=== PATIENT | female | born 1950 | race Caucasian/White ===

== ENCOUNTER → 2017-03-01 | Outpatient (CLI) | payer MEDICARE, MEDICAID ==
[~2017-03-01] MED LIST: ACETAMIN W/CODE1 TAB PO; ANUSOL HC 25MG25 MG PR; ARTHRITIS PAIN650 M1 PO; ASPIRIN 81MG TA81 MG PO; ATORVASTATIN CA40 MG PO; CARAFATE 1GM TAB1 GM PO; CIPRO 500MG TA500 MG PO; CONSTULOSE10 GM/15 M PO; DRAMAMINE50 M1 PO; EFFEXOR XR 75MG75 MG PO; FUROSEMIDE 40MG40 M1 PO; GABAPENTIN100 MG PO; GABAPENTIN300 M1 PO; GABAPENTIN300 MG PO; GRALISE600 M1 PO; HYDROCODONE-APA1 TA1 PO; HYDROXYZINE 25M25 MG PO; IMDUR ER30 MG PO; ISOSORBIDE MONO30 MG PO; LASIX40 MG PO; LIPITOR40 MG PO; LISINOPRIL 20MG20 MG PO; LISINOPRIL20 MG PO; METAMUCIL(SF)1 EACH PO; NITROGLYCERIN0.4 M1 SL; NITROGLYCERIN0.4 MG SL; NITROSTAT 0.4M0.4 MG SL; NORCO 325 MG-101 TAB PO; OMEPRAZOLE20 MG PO; PREDNISONE 20MG20 MG PO; PROVENTIL0.09 MG/A1 IH; ROBITUSSIN120 ML/BOT PO; SPIRONOLACTONE25 M1 PO; TESSALON PERLE100 MG PO; TYLENOL ES500 MG PO; VENLAFAXINE 337.5 MG PO; VENTOLIN H0.09 MG/Ac IH; VERAPAMIL HCL80 MG PO; ZITHROMAX Z-PA250 M2 PO; ZOCOR40 MG PO
--- NOTE | 2017-03-01 16:15 | RADIOLOGY REPORT PS360 ---
KNEE-3 VIEWS-RT HISTORY: RT KNEE PAIN ORDERING PHYSICIAN: Jose C Elias MD PATIENT AGE: 67 years COMPARISON: None FINDINGS: There are mild osteoarthritic changes of all 3 compartments greater at the medial compartment and patellofemoral joint with decrease in the joint space and osteophyte formation. There is a suprapatellar effusion. No acute fracture or dislocation. No lytic or blastic change. Minimal chondrocalcinosis involves the lateral meniscus. IMPRESSION: 1. Osteoarthritis with knee joint effusion. 2. Mild chondrocalcinosis
== END ==
LOC: RAD 15:41
DX: M25.561 Pain in right knee (principal)